=== PATIENT | female | born 1970 | race Caucasian/White ===

== ENCOUNTER 2019-03-03 12:44 | Day surgery (SDC) | payer OTHER, SELFPAY ==
--- NOTE | 2019-03-01 09:10 | PCM.HP.BLA ---
History and Physical Date of Admission: 03/03/19 HPI: The patient is a 48 year old female presenting for pre-operative visit. She is scheduled for?hysteroscopy D&C for possible polyp resection, for?abnormal uterine bleeding and thickened endometrium. ??Procedure discussed along with risks, benefits and complications. ?Other alternatives discussed for management. Consent form signed??Yes.? PAST MEDICAL HISTORY PAST MEDICAL HISTORY Diagnosis Date ? Essential hypertension ? ? Hypothyroidism ? ? ? PAST SURGICAL HISTORY PAST SURGICAL HISTORY Procedure Laterality Date ? SECTION HX ? 02/10/1994 ? SECTION HX ? 10/12/2008 ? TUBAL LIGATION ? CURRENT MEDICATIONS Current Outpatient Medications Medication Sig Dispense Refill ? clobetasol (TEMOVATE) 0.05 % ointment Apply 1 application to affected area twice daily. Apply as directed. 60 g 2 ? levothyroxine (SYNTHROID) 50 mcg tablet TAKE 1 TABLET BY MOUTH EVERY DAY 30 tablet 2 ? hydroCHLOROthiazide (HYDRODIURIL, ESIDRIX) 25 mg tablet TAKE 1 TABLET BY MOUTH ONCE DAILY 30 tablet 2 ? Ibuprofen (ADVIL) 200 mg cap Take 1 capsule by mouth. ? ? ? miSOPROStol (CYTOTEC) 200 mcg tablet Use 2 tablets vaginally as directed for [address] 2 tablets vaginally qhs before the procedure and 2 the morning of 4 tablet 0 ? medroxyPROGESTERone (PROVERA) 10 mg tablet Take 1 tablet by mouth once daily. (Patient not taking: Reported on 02/23/2019 ) 10 tablet 0 ? No current facility-administered medications for this visit.? ? ALLERGIES:?Patient has no known allergies. ? PERSONAL HISTORY:? SOCIAL HISTORY Social History ? Tobacco Use ? Smoking status: Never Smoker ? Smokeless tobacco: Never Used Substance Use Topics ? Alcohol use: Yes ? ? Comment: occasion beer/wine ? Drug use: No ? FAMILY HISTORY:? FAMILY HISTORY FAMILY HISTORY Problem Relation Age of Onset ? Skin Cancer Mother ? ? Eczema Mother ? ? Obesity Mother ? ? Heart disease Mother ?CHF ? Heart disease Father ? ? Hypertension Father ? ? Hyperlipidemia Father ? ? Stroke Father ? ? Kidney Disease Father ? ? Depression Father ? ? Mental illness Father ? ? other (blood clots) Father ? ? Heart disease Sister ?HI age 31 ? Hypertension Sister ? ? Hyperlipidemia Sister ? ? Depression Sister ? ? Mental illness Sister ? ? Obesity Sister ? ? Thyroid Sister ? ? other (blood clots) Sister ? ? Kidney Disease Maternal Grandmother ? ? Heart disease Paternal Grandfather ? ? REVIEW OF SYMPTOMS: GENERAL: denies fevers or chills ENDOCRINOLOGY: has not been on steroids Cardiology : denies palpitations or chest pain Respiratory: denies SOB or cough Hematology: denies history of prolonged bleeding or easy bruising or VTE Allergy: Denies history of personal or family history of allergy to anesthesia ? ? PHYSICAL EXAMINATION: ? VITALS:?Blood pressure 118/70, weight 195 lb (88.5 kg), last menstrual period 10/28/2018. ? GENERAL:??The patient is well nourished, well hydrated in no acute distress. ?, The patient is oriented to time, place, and person. NECK:?Supple. No lynphadenopathy, normal thyroid, no thyromegaly. LUNGS:?Clear to auscultation bilaterally. no wheezes, rhonchi or rales HEART:?Regular rate and rhythm, Normal heart sounds and No murmurs or gallops GENITALIA:?Normal external genitalia, Urethral meatus normal, Bladder nontender, normal vagina and normal vaginal tone, normal cervix, normal uterus, size and consistency, normal adnexa without masses or tenderness and perineum WNL WET PREP:?Not indicated ? ? PELVIC US 12/10/18: RESULT: Uterus size: 9.4 x 4.8 x 5.3 cm ?-Orientation: Anteverted ?-Myometrium: Heterogeneous. ?There is an approximately 2.4 x 2.4 x 2.4 cm uterine fibroid. ?-Endometrial echo complex: Thickened and heterogeneous, measuring approximately 1.1 cm. ?Suspected calcification within the endometrium. ?-Cervix: Nabothian cysts Right ovary: 2.7 x 1.4 x 2.6 cm. ?Right ovary is only seen transabdominally. ?Cyst versus follicle seen within the right ovary, measuring approximately 1.1 cm. Left ovary: 2.9 x 2.2 x 1.8 cm. ?The left ovary is only seen transabdominally. ?Normal sonographic appearance. Pelvis free fluid: None. ? IMPRESSION:?stenotic cervix, unable to enter endometrium in office, AUB, thickened endometrium ? PLAN:???The risks/benefits/alternatives and personal involved for the planned?hysteroscopy D&C with possible polyp resection?were reviewed with the patient. Her questions were answered to her satisfaction and she desires to proceed. ?Consent was signed. ?I reviewed with her postop instructions and expectations. ? Patient was given these up Jevon preoperatively to help soften the cervix. ? ? I have reviewed and updated past medical and surgical history, medications and allergies?
[2019-03-03] VITALS (8 sets, daily range): BP systolic 132–153; BP diastolic 78–92; PULSE 78–93; RESP 16; TEMP 36.3–36.9; O2SAT 94–100; BMI 39.3
[2019-03-03 13:27] LABS: Internal QC Validated? YES +Cl - CLEAR BKGD; Pregnancy, Urine Negative Negative
[2019-03-03] MEDS: Lactated Ringers 1,000 ML 100 ML IV (13:48)
[2019-03-03] MEDS: Acetaminophen 500 MG Tablet 1000 MG PO (13:54)
[2019-03-03] MEDS: Ketorolac 30 MG/ML Syringe IV (13:55)
--- NOTE | 2019-03-03 15:00 | EMB_PTH ---
PATIENT: URIEL IRIZARRY [place] [facility] [place][id number] AGE/SX: 48/F ROOM: RE03/03/[address]: Dr. Cari Escoto MD : [id number] BED: DIS: 03/03/2019 SPEC #: [id number] RECD: 03/04/19 09:55 STATUS: MARY BELTRANJeronimo #: [id number] JENNIFER: 03/03/19 15:[address]: Cari Escoto DEPT: SURGICAL PATHOLOGY RECD BY: Alejandra Puri ENTERED: 03/04/19 11:34 SP TYPE: ENDOM BX/C ERASTO DR: DAVID Cloud Tissues: Endometrium, NOS Procedures: Surgery Specimen Level IV HEADER OPERATION: Hysteroscopy, dilation and curettage, polyp resection PRE-OP DIAGNOSIS: Thickened endometrium, abnormal uterine bleeding TISSUE SUBMITTED: Endometrial curettings MICROSCOPIC DIAGNOSIS Endometrial curettings: Proliferative endometrium. Fragments of myometrium. Fragments of benign endocervical mucosa and mucus. SJ:elsia 03/07/19 MICROSCOPIC DESCRIPTION Slides are reviewed. GROSS DESCRIPTION Received in formalin is one container labeled with the patient name and designated endometrial curettings. The specimen consists of multiple irregular fragments of light carter tissue measuring in aggregate 5.5 x 3 x 0.2 cm. The specimen is submitted in its entirety in 2 cassettes. / AM:lesia 03/04/19 TC:5 CPT: 68291
[2019-03-03] MEDS: Lactated Ringers 1,000 ML 75 ML IV (16:40)
--- NOTE | 2019-03-03 16:41 | DCINST_ITS ---
Discharge Diet: No Restrictions Discharge Activity: Return to Normal Activity, May Shower, May Take a Tub Bath - in 2 weeks. Return to work on:: 03/07/19 May shower in (days): 1 May resume sexual activity in: 2 weeks Call your doctor if your incision/area has: Sudden Increased Bleeding, Foul Smelling Discharge Call your doctor if you observe: Fever of 101 or Higher, Using more than one pad per hour, Uncontrolled pain Allergies/Adverse Reactions: Allergies No Known Allergies Allergy (Verified 03/02/19 09:20) Medications to take at Discharge Hydrochlorothiazide 12.5 mg PO DAILY 03/02/19 Levothyroxine Sodium [Synthroid] 25 mcg PO DAILY 03/02/19 Primary Care Physician: Maria Elena Cameron NP-C [Primary Care Provider] - Test Results: Test results from this visit will be discussed in further detail at your follow- up appointment, if applicable. Please Follow Up With: Cari Escoto MD - [phone] When: in 4-6 weeks if needed
[2019-03-03] MEDS: 0.9% Normal Saline (Pres. free 10 ML Vial (16:46)
[2019-03-03] MEDS: Vasopressin 20 UNITS/ML Vial (16:46)
--- NOTE | 2019-03-03 17:04 | OP.PCM_ITS ---
Report of Operation Date of Procedure: 03/03/19 Pre-Operative Diagnosis: AUB, thickened endometrium Post-Operative Diagnosis: same Surgery/Procedure Performed:: Hysteroscopy with visual dilation and curettage with Symphion resection device Description of Surgical Findings:: Lush white endometrium, narrow endometrial cavity, normal-appearing cervix and vagina signal integrity engineer: Rehana Snow Type of Anesthesia:: MAC/Supplemental/Local Anesthesiologist: Dori Sawant Special Medications: none Specimen's removed: endometrial curettings Drains: none Estimated Blood Loss (mL): 10 Fluids Replaced: 1200cc Description of Procedure: The patient was taken to the OR where she was prepped and draped in dorsal lithotomy position. The weighted speculum was placed in the vagina and the anterior lip of the cervix was grasped with a single-tooth tenaculum. A paracervical block was administered with [10 cc of 1% lidocaine with 1-100,000 epinephrine solution]. A dilute vasopressin solution 20 units and 30 cc was then injected into the cervix. 6 cc of the solution was used. The cervix was dilated serially with Hegar dilators. The [5mm] hysteroscope was placed into the uterine cavity and the above findings were noted. Bilateral tubal ostia [were] identified. The hysteroscope was removed. The Symphion device was readied and inserted. Visual resection of the left endometrium was performed. The instruments were removed from the vagina. The specimen was handed off and sent to pathology. All sponge and needle counts were correct. Vaginal sweep was performed by me. The patient was awakened and taken to the recovery room in stable condition. Her scopic fluid deficit was 400 cc per the calculation from the Symphion device Grafts/Implants Used: none - Complications none - Admit VTE Documentation VTE Present on Admission: No VTE Mechan Device Prophylaxis: SCD's VTE Pharm Prophylaxis ordered?: No Reason prophylaxis not ordered:: Procedure Not Indicated
== END 2019-03-03 18:30 | disposition home or self-care (01) ==
LOC: SDC 12:51 → AC 12:53
PROVIDERS: Family Provider Nurse Practitioner Family; PCP Nurse Practitioner Family; Referring Provider Obstetrics & Gynecology; Visit Provider Obstetrics & Gynecology
PROC: 0UB98ZZ Excision of Uterus, Via Natural or Artificial Opening Endoscopic (ICD-10-PCS; CPT 58558; principal; 2019-03-03 14:45)
DX: N93.9 Abnormal uterine and vaginal bleeding, unspecified (principal); R93.89 Abnormal findings on diagnostic imaging of other specified body structures; N88.2 Stricture and stenosis of cervix uteri; I10 Essential (primary) hypertension; E03.9 Hypothyroidism, unspecified; Z79.899 Other long term (current) drug therapy
CPT/HCPCS: 00952; 58558; 81025; 88305; J7120; J1940; J2405; J3490